=== PATIENT | female | born 1985 | race Caucasian/White ===

== ENCOUNTER 2017-01-29 23:23 | Emergency (ER) | payer SELFPAY ==
[2017-01-30] MEDS ORDERED: NORMAL SALINE 500 ML IV ONE (00:39)
[2017-01-30] MEDS ORDERED: ONDANSETRON HCL INJ/PF 4 MG/2 ML SDV IV ONE (00:41)
[2017-01-30] MEDS ORDERED: MORPHINE SULFATE 10 MG/ML INJ IV ONE (00:41)
[2017-01-30 00:57] LABS: ABSOLUTE BASOPHILS # (AUTO) 0.2 10^3/uL (0.0-0.2); ABSOLUTE EOSINOPHILS # (AUTO) 0.2 10^3/uL (0.0-0.6); ABSOLUTE LYMPHOCYTES (AUTO) 2.3 10^3/uL (0.5-4.7); ABSOLUTE MONOCYTES (AUTO) 0.5 10^3/uL (0.1-1.4); BASOPHILS % (AUTO) 0.8 % (0-2); EOSINOPHILS % (AUTO) 0.8 % (0-6); HEMATOCRIT 41.5 % (36.0-47.0); HEMOGLOBIN 14.3 g/dL (12.0-15.5); HGB HCT DIFFERENCE 1.4; LYMPHOCYTES % (AUTO) 12.7 % (13-45); MEAN CORPUSCULAR HEMOGLOBIN 30.7 pg (27.0-33.4); MEAN CORPUSCULAR HGB CONC 34.5 g/dL (32.0-36.0); MEAN CORPUSCULAR VOLUME 89 fl (80-97); MONOCYTES % (AUTO) 2.9 % (3-13); RED BLOOD COUNT 4.65 10^6/uL (3.72-5.28); SEGMENTED NEUTROPHILS % (AUTO) 82.8 % (42-78); WHITE BLOOD COUNT 18.1 10^3/uL (4.0-10.5)
[2017-01-30 01:08] LABS: ALANINE AMINOTRANSFERASE 27 U/L (9-52); ALBUMIN 4.4 g/dL (3.5-5.0); ALKALINE PHOSPHATASE 82 U/L (38-126); ANION GAP 13 (5-19); ASPARTATE AMINO TRANSFERASE 16 U/L (14-36); BILIRUBIN,DIRECT 0.4 mg/dL (0.0-0.4); BILIRUBIN,TOTAL 0.4 mg/dL (0.2-1.3); BLOOD UREA NITROGEN 11 mg/dL (7-20); CALCIUM 9.7 mg/dL (8.4-10.2); CARBON DIOXIDE 24 mmol/L (22-30); CHLORIDE 108 mmol/L (98-107); CREATININE RESULT 0.83 mg/dL (0.52-1.25); GLUCOSE 146 mg/dL (75-110); LIPASE 79.6 U/L (23-300); POTASSIUM 4.3 mmol/L (3.6-5.0); SODIUM 145.1 mmol/L (137-145)
[2017-01-30] MEDS ORDERED: HYDROMORPHONE HCL INJ/PF 2 MG/ML AMPULE IV ONE (01:11)
[2017-01-30 01:46] LABS: AMORPHOUS SEDIMENT,URINE TRACE /HPF; APPEARANCE,URINE CLOUDY; BILIRUBIN,URINE NEGATIVE (NEGATIVE); GLUCOSE, URINE NEGATIVE (NEGATIVE); KETONES,URINE TRACE mg/dL (NEGATIVE); LEUKOCYTE ESTERASE,URINE TRACE (NEGATIVE); NITRITE,URINE NEGATIVE (NEGATIVE); PROTEIN,URINE 30 mg/dL (NEGATIVE)
--- NOTE | 2017-01-30 02:00 | RADIOLOGY REPORT (SQ) ---
EXAM DESCRIPTION: U/S NON OB PEL W/DOPPLER COMPLETED DATE/TIME: 01/30/2017 1:47 am REASON FOR STUDY: left pelvic pain COMPARISON: None. TECHNIQUE: Grayscale images acquired of the pelvis via transabdominal approach and recorded on PACS. Additional selected color Doppler and spectral images recorded. LIMITATIONS: The patient was unable to move from the stretcher. FINDINGS: UTERUS: Measures 8.7 x 4.3 x 3.1 cm. No focal myometrial mass was noted. ENDOMETRIAL STRIPE: Measures 1.3 mm in double wall thickness. CERVIX: Measures 2.9 cm in length and it is closed. RIGHT OVARY: Measures 2.6 x 1.4 x 2.6 cm. Flow by Doppler was shown to the right ovary. Follicular cysts are noted. LEFT OVARY: Measures 2.6 x 1.7 x 2.7 cm. Flow by Doppler was shown to the left ovary. Follicular cy sts are noted. FREE FLUID: None noted. IMPRESSION: Unremarkable pelvic ultrasound. TECHNICAL DOCUMENTATION: JOB ID: [id number] 2010 [employer]- All Rights Reserved
--- NOTE | 2017-01-30 02:15 | ER Document Report ---
ED GI/ - General Chief Complaint: Abdominal Pain Stated Complaint: ABDOMINAL PAIN Time Seen by Provider: 01/30/17 00:29 Notes: Patient is a 31-year-old female presents emergency department complaining of sudden onset suprapubic pain. Patient states that she was fine up until 930 this evening when she had sudden suprapubic pain radiating into her left flank. Patient admits to nausea and vomiting urinary frequency. She denies any fever , chills, hematuria, diarrhea, constipation. Patient states that her last menstrual period was at the end of December. Last bowel movement was today and normal. Patient states that she is sexually active with one partner last intercourse was approximately 2 weeks ago. She does not use protection but she is on the pill for control. She denies any history of ectopic . She denies any vaginal discharge, pain, bleeding. Family history significant for kidney stones in mother Past medical history denies Past surgical history significant for tonsils and adenoids Social history significant for current tobacco user, denies any alcohol or drug use. Patient works for the [employer]. TRAVEL OUTSIDE OF THE [place] IN LAST 30 DAYS: No - Related Data Allergies/Adverse Reactions: No Known Allergies Allergy (Unverified 07/24/13 20:08) Past Medical History - Social History Smoking Status: Current Every Day Smoker Family History: Reviewed & Not Pertinent Pulmonary Medical History: Reports: Hx Asthma Renal/ Medical History: Denies: Hx Peritoneal Dialysis - Immunizations Hx Diphtheria, Pertussis, Tetanus Vaccination: Yes Review of Systems - Review of Systems Constitutional: No symptoms reported Cardiovascular: No symptoms reported Respiratory: No symptoms reported Gastrointestinal: See HPI Genitourinary: Frequency Female Genitourinary: See HPI Musculoskeletal: No symptoms reported -: Yes All other systems reviewed and negative Physical Exam - Vital signs Vitals: Temp Pulse Resp BP Pulse Ox 97.9 F 68 20 120/61 98 01/30/17 00:15 01/30/17 00:15 01/30/17 00:15 01/30/17 00:01/30/17 00:15 - Notes Notes: PHYSICAL EXAM GENERAL: Alert, interacts well. HEAD: Normocephalic, atraumatic. EYES: Pupils equal, round, and reactive to light. Extraocular movements intact. ENT: Oral mucosa moist, tongue midline. NECK: Full range of motion. Supple. Trachea midline. LUNGS: Clear to auscultation bilaterally, no wheezes, rales, or rhonchi. No respiratory distress. HEART: Regular rate and rhythm. No murmurs, gallops, or rubs. ABDOMEN: Soft, nondistended, moderate tenderness of the left lower quadrant and left flank with CVA tenderness. No guarding, rebound, or rigidity.. Bowel sounds present in all 4 quadrants. FEMALE : Normal external exam. No evidence of lesions, lacerations, bruising or vesicles. Speculum exam normal cervix closed. No evidence of vaginal discharge with odor. No evidence of lesions. No vaginal bleeding. Bimanual exam normal no cervical motion tenderness. Mild left adnexal tenderness without right adnexal mass or adnexal tenderness. EXTREMITIES: Moves all 4 extremities spontaneously. No edema, radial and dorsalis pedis pulses 2/4 bilaterally. No cyanosis. NEUROLOGICAL: Alert and oriented x4. Normal speech. PSYCH: Normal affect, normal mood. SKIN: Warm, dry, normal turgor. No rashes or lesions noted. Course - Re-evaluation Re-evalutation: 01/30/17 01:00 Patient is a 31-year-old female who is hemodynamic with stable in moderate distress and afebrile. Patient is responded well to initial pain medication. Given physical exam findings will send for transvaginal ultrasound to rule out ectopic , ovarian torsion, cyst or ruptured cyst. Labs pending. 01/30/17 02:00 CBC elevated to 18,000 with evidence of urinary tract infection hematuria noted on urinalysis. Chemistry without any abnormalities. Ultrasound negative for any evidence of torsion with positive Doppler flow to both ovaries, no evidence of ovarian cyst, free fluid, ectopic . HCG was negative. At this time patient feeling much better after pain medication and denies any nausea. Upon reexam, mild left lower quadrant tenderness with remaining flank pain. Was sent for CT of the abdomen and pelvis. 01/30/17 03:20 CT of the abdomen and pelvis shows incidental finding of liver lesion without any evidence of appendicitis, peritoneal free fluid or air, colitis, small bowel obstruction, incarcerated hernia, kidney stones. Given patient's family history, presentation, physical exam findings, evidence of hematuria is likely that patient either has a stone not detected by CT scan or past 1 throughout the evening. Will discharge patient home on p.o. antibiotics with strict return precautions and pain medication. Patient and family agree with plan. Will receive IV antibiotics in the department in addition to IV fluids prior to discharge. - Vital Signs Vital signs: Temp Pulse Resp BP Pulse Ox 97.9 F 68 16 101/60 99 01/30/17 00:15 01/30/17 00:15 01/30/17 04:01 01/30/17 04:01 01/30/17 04:01 - Laboratory Result Diagrams: 01/30/17 00:37 01/30/17 00:37 Laboratory results interpreted by me: 01/30/17 01/30/17 01/30/17 00:37 00:37 01:07 WBC 18.1 H Seg Neutrophils % 82.8 H Lymphocytes % 12.7 L Monocytes % 2.9 L Absolute Neutrophils 15.0 H Sodium 145.1 H Chloride 108 H Glucose 146 H Urine Protein 30 H Urine Ketones TRACE H Urine Blood LARGE H Urine Urobilinogen 2.0 H Ur Leukocyte Esterase TRACE H - Diagnostic Test Radiology reviewed: Image reviewed, Reports reviewed Discharge - Discharge Clinical Impression: Abdominal pain Qualifiers: Abdominal location: left lower quadrant Qualified Code(s): R10.32 - Left lower quadrant pain UTI (urinary tract infection) Qualifiers: Urinary tract infection type: acute cystitis Hematuria presence: with hematuria Qualified Code(s): N30.01 - Acute cystitis with hematuria Condition: Good Disposition: HOME, SELF-CARE Additional Instructions: Please follow up with your primary care physician in 3-5 days Please return with worsening pain, fevers, decreased urine output, vomiting that does not respond to medication PYELONEPHRITIS: Your evaluation shows evidence of pyelonephritis. This is an infection in the kidney. Typical symptoms are fever, pain in the flank, pain on urination, and frequent urination. Many cases of pyelonephritis can be treated at home. Hospital care may be necessary for patients who are very ill, or elderly or . Pyelonephritis is treated with antibiotics. Be sure to take all the medication as prescribed. Drink plenty of liquids (about three quarts per day) . You may take acetaminophen for fever. You should feel significantly improved within two days. You should have a recheck of your urine in about one week to insure that the infection is gone. Return for a re-examination if your symptoms worsen in any way -- such as high fever, shaking chills, severe weakness or dizziness, severe pain, or inability to pass your urine. ANTINAUSEA MEDICATION: You have been given a medication to suppress nausea and vomiting. This type of medication can be given as a shot, pill, or suppository. It will usually last for many hours. Pills and shots usually last six to eight hours, suppositories last about 12 hours. For the typical illness, only one or two doses of the medication may be necessary. Mild lightheadedness may occur. This type of medicine can cause drowsiness. Do not drive or operate dangerous machinery while under its influence. Do not mix with alcohol. See your doctor at once if you have muscle spasms or tightness, or uncontrollable motions (particularly of the neck, mouth, or jaw). Persistent vomiting or severe lightheadedness should also be evaluated by the physician. ANTIBIOTIC THERAPY: You have been given an antibiotic prescription. It's important that you take all the medication, unless instructed otherwise by your physician. Failure to complete the entire course can result in relapse of your condition. Common side effects of antibiotics include nausea, intestinal cramping, or diarrhea. Women may develop vaginal yeast infections, and babies can get yeast (thrush) in the mouth following the use of antibiotics. Contact your physician if you develop significant side effects from this medication. Allergy to this antibiotic can result in hives, wheezing, faintness, or itching. If symptoms of allergy occur, stop the medication and call the doctor. CIPROFLOXACIN: You have been given an antibacterial agent, ciprofloxacin (Cipro). This medicine is not related to the penicillins, sulfas, cephalosporins, or tetracyclines. It is often given to patients who are allergic to these drugs. It has been chosen for you either because other drugs are not appropriate, or because of the nature of your problem. Cipro should not be taken with antacids, as these can decrease its effectiveness. It can be taken without regard to meals. CIPRO SHOULD NOT BE TAKEN BY CHILDREN, NURSING WOMEN, OR WOMEN. Although Cipro is usually well-tolerated, common side effects can include nausea and diarrhea. Contact your doctor if you experience any unusual symptoms while on this medication, such as joint pain or swelling, shortness of breath, wheezing, faintness, or hives. USE OF ACETAMINOPHEN (Tylenol): Acetaminophen may be taken for pain relief or fever control. It's much safer than aspirin, offering a wider range of "safe" dosages. It is safe during . Some brand names are Tylenol, Panadol, Datril, Anacin 3, Tempra, and Liquiprin. Acetaminophen can be repeated every four hours. The following are maximum recommended dosages: >89 pounds or adults 650 mg to 900 mg Acetaminophen can be repeated every four hours. Maximum dose not to exceed 4000 mg a day. ORAL NARCOTIC MEDICATION: You have been given a prescription for pain control. This medication is a narcotic. It's best taken with food, as nausea can result if taken on an empty stomach. Don't operate machinery or drive within six hours of taking this medication. Do not combine this medicine with alcohol, or with any medication which can cause sedation (such as cold tablets or sleeping pills) unless you get permission from the physician. Narcotics tend to cause constipation. If possible, drink plenty of fluids and eat a diet high in fiber and fruits. Please be aware that prescription narcotics also have the potential for abuse. People become addicted to these medications because of the general sense of wellbeing that they induce. This feeling along with a significant reduction in tension, anxiety, and aggression provides a stimulating seductive quality to these drugs. Once your pain is under control, we encourage you to discard your unused narcotics. FOLLOW-UP CARE: If you have been referred to a physician for follow-up care, call the physician s office for an appointment as you were instructed or within the next two days. If you experience worsening or a significant change in your symptoms, notify the physician immediately or return to the Emergency Department at any time for re-evaluation. Prescriptions: Metoclopramide HCl [Reglan] 5 mg PO Q6HP PRN #15 tablet PRN Reason: Ciprofloxacin HCl [Cipro 500 mg Tablet] 500 mg PO BID #14 tablet Oxycodone HCl/Acetaminophen [Percocet 5-325 mg Tablet] 1 - 2 tab PO Q4H PRN #10 tablet PRN Reason:
--- NOTE | 2017-01-30 02:54 | RADIOLOGY REPORT (SQ) ---
EXAM DESCRIPTION: CT ABD/PELVIS WITH IV ONLY COMPLETED DATE/TIME: 01/30/2017 2:29 am REASON FOR STUDY: left lower quadrant and flank pain with hematuria COMPARISON: Pelvic ultrasound 01/30/2017. TECHNIQUE: CT scan of the abdomen and pelvis performed using helical scanning technique with dynamic intravenous contrast injection. No oral contrast. Images reviewed with lung, soft tissue, and bone windows. Reconstructed coronal and sagittal MPR images reviewed. Delayed images for evaluation of the urinary system also acquired. All images stored on PACS. All CT scanners at this facility use dose modulation, iterative reconstruction, and/or weight based d osing when appropriate to reduce radiation dose to as low as reasonably achievable (ALARA). [facility]: Dose Right [facility]: CareDose [facility]: Dose Right [facility]: Teradose 4D [facility]: [place] CONTRAST TYPE AND DOSE: contrast/concentration: Isovue 370.00 mg/ml; Total Contrast Delivered: 81.0 ml; Total Saline Delivered: 70.0 ml RENAL FUNCTION: Creatinine 0.83. RADIATION DOSE: Up-to-date CT equipment and radiation dose reduction techniques were employed. CTDIv ol: 12.8 - 17.3 mGy. DLP: 1651 mGy-cm.. LIMITATIONS: Motion artifact. FINDINGS: LOWER CHEST: Mild bibasilar atelectasis. No pleural effusion. LIVER: Normal size. There is a 1.3 cm hypodense lesion at the right hepatic lobe, segment 7. No dil ated ducts. SPLEEN: Normal size. PANCREAS: No significant calcifications. No adjacent inflammation or peripancreatic fluid collections . Pancreatic duct not dilated. GALLBLADDER: No identified stones by CT criteria. No inflammatory changes to suggest cholecystitis. ADRENAL GLANDS: No significant masses or asymmetry. RIGHT KIDNEY AND URETER: No significant calcifications. No hydronephrosis or hydroureter. LEFT KIDNEY AND URETER: No significant calcifications. No hydronephrosis or hydroureter. AORTA AND VESSELS: No abdominal aortic and. RETROPERITONEUM: No hemorrhage or masses. BOWEL AND PERITONEAL CAVITY: No dilated bowel loops or obvious inflammatory changes. No free fluid or free air. APPENDIX: Normal. PELVIS: The urinary bladder is partially distended. The uterus is present. No pelvic mass or free f luid. ABDOMINAL WALL: No hernias. BONES: No acute findings. IMPRESSION: No acute findings in the abdomen or pelvis. 1.3 cm hypodense lesion at the right hepatic lobe, indeterminate. Nonemergent contrast enhanced dedi cated MRI recommended for further characterization. TECHNICAL DOCUMENTATION: JOB ID: [id number] [place]- Quality ID # [id number]: Final reports with documentation of one or more dose reduction techniques (e.g., Au tomated exposure control, adjustment of the mA and/or kV according to patient size, use of iterative reconstruction technique) 2010 [employer]- All Rights Reserved
[2017-01-30 03:16] LABS: CHLAM PCR NOT DETECTED (NOT DETECT)
[2017-01-30] MEDS ORDERED: NORMAL SALINE 1000 ML 1,500 ML IV ONE (03:31)
[2017-01-30] MEDS ORDERED: CIPROFLOXACIN 400 MG/D5W RTU 400 MG/200 ML RTUPB IV ONE (03:32)
[2017-01-30 04:53] VITALS: BP 101/60
== END 2017-01-30 04:30 | disposition home or self-care (01) ==
LOC: ER 23:23
DX: N30.01 Acute cystitis with hematuria (principal); R10.32 Left lower quadrant pain; K76.9 Liver disease, unspecified; R11.2 Nausea with vomiting, unspecified; R35.0 Frequency of micturition; F17.200 Nicotine dependence, unspecified, uncomplicated; J45.909 Unspecified asthma, uncomplicated; Z79.3 Long term (current) use of hormonal contraceptives; Z84.1 Family history of disorders of kidney and ureter
CPT/HCPCS: 36415; 87210; 84702; 83690; 85025; 80053; 81001; 87491; 87591; 83605; 76856; 93976; 74177; J2270; J1170; J2405; J7030; J7040; J0744